=== PATIENT | female | born 1995 | race Caucasian/White ===

== ENCOUNTER 2019-06-18 04:15 | Inpatient (IN) ==
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
[2019-06-18] MEDS: CLOTRIMAZOLE VAGINAL CR 7 APPLN/45 GM TUBE PV SCH (22:47)
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
[2019-06-19] MEDS: PRENATAL VITAMIN 1 TAB PO SCH (09:10)
--- NOTE | 2019-06-19 16:34 | Ultrasound Report ---
US OB <= 14 weeks fetus CLINICAL HISTORY: 23 years-old Female presenting with confirm viability, , , unsure of L MP, cramping, no bleeding. TECHNIQUE: Real-time grayscale and M-mode ultrasound imaging of the pelvis was performed using a silva sabdominal probe for a first trimester evaluation. Color and spectral Doppler ultrasound imaging of t he adnexa was also performed. COMPARISON: None. FINDINGS: Bladder: Normal. Uterus: Single live intrauterine . size metrics: Femur length 0.8 cm corresponding to an estimated gestational age 12 weeks 4 days. [place]-rump length 6.6 cm corresponding to an estimated gestational age 12 weeks 6 days. Composite gestational age 12 weeks 5 days with an estimated date of delivery 12/27/2019. heart rate: 159 beats per minute. Orientation: Transverse presentation. Ges tational sac shape: Normal configuration. Amniotic fluid volume: Normal amniotic fluid volume. MANDA: N ot measured. Placenta: Fundal placental implantation. No perigestational fluid to suggest hemorrhage. Cervix: Long and closed. Cervical length: Not measured. Right adnexa: Right ovary: Contains a corpus luteum. Grossly normal color Doppler flow and arterial a nd venous waveforms within the ovarian parenchyma. Right ovary size: 2.4 x 1.7 x 2.1 cm. Left adnexa: Left ovary: Grossly normal. Grossly normal color Doppler flow and arterial and venous wa veforms within the ovarian parenchyma. Left ovary size: 1.8 x 0.9 x 1.3 cm. Other: No large volume free fluid. IMPRESSION: Single live intrauterine . Composite estimated gestational age 12 weeks 5 days with an estim ated date of delivery 12/27/2019. No perigestational hemorrhage. Electronically signed by: Benjamin Soler M.D. 06/19/2019 4:32 PM
[2019-06-19] MEDS: CLOTRIMAZOLE VAGINAL CR 7 APPLN/45 GM TUBE PV SCH (21:31)
--- NOTE | 2019-06-19 22:22 | Consultation Report ---
DATE OF CONSULTATION: 06/19/2019 REASON FOR ADMISSION AND HOSPITAL COURSE: The patient is a 23-year-old female, para 1-0-0-1, who presents to the [facility] after being transferred from [place] after suicidal and homicidal ideations. The patient states that she is 13 weeks , has had an ultrasound and care in [place] and so far the has been uncomplicated. The patient states that she is having some minimal pain, has a history of endometriosis and has no other obstetrical problems currently. The patient is not bleeding, has not felt the baby move. She is not having any other symptoms of nausea and vomiting of and has 1 prior spontaneous delivery which occurred 4 years ago. SOCIAL HISTORY: The patient is currently not in a relationship. She is a nonsmoker. Denies drug use or alcohol use. She does, however, admit to occasionally using marijuana. MEDICATIONS: Are the psychiatric medications that she is on plus vitamins. ALLERGIES: INCLUDE METHYLPHENIDATE AND SERTRALINE. FAMILY HISTORY: Noncontributory. REVIEW OF SYSTEMS: Negative. PHYSICAL EXAMINATION: Her abdomen is soft, nongravid at this time, with no rebound or guarding. ASSESSMENT: 13 weeks by dates and plan will be to get an ultrasound to confirm viability. Continue Psych evaluation and evaluation for her bipolar disorder. PLAN: Will be to continue care once discharged and anticipate a normal course. Recommend portable ultrasound for viability.
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
[2019-06-20] MEDS: PRENATAL VITAMIN 1 TAB PO SCH (09:29)
[2019-06-20] MEDS ORDERED: METRONIDAZOLE VAG 0.75% PV SCH (22:00)
[2019-06-21] MEDS: PRENATAL VITAMIN 1 TAB PO SCH (08:27)
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
== END 2019-06-20 15:45 | disposition home or self-care (01) | DRG 832 ==
LOC: 3S 10:38
DX: N94.2 Vaginismus; O99.341 Other mental disorders complicating pregnancy, first trimester; F31.9 Bipolar disorder, unspecified; R45.850 Homicidal ideations; R45.851 Suicidal ideations; Z3A.13 13 weeks gestation of pregnancy